=== PATIENT | female | born 1975 | race Caucasian/White ===

== ENCOUNTER 2019-01-04 16:23 | Emergency (ER) | payer OTHER ==
[2019-01-04] MEDS ORDERED: IBUPROFEN 600 MG TAB PO ONE (17:14)
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
[2019-01-04 17:52] VITALS: BP 166/96
== END 2019-01-04 17:52 | disposition home or self-care (01) ==
DX: M25.552 Pain in left hip (principal); M25.511 Pain in right shoulder; V00.321A Fall from snow-skis, initial encounter; Y93.23 Activity, snow (alpine) (downhill) skiing, snowboarding, sledding, tobogganing and snow tubing; Y92.838 Other recreation area as the place of occurrence of the external cause